=== PATIENT | female | born 1955 | race Caucasian/White ===

== ENCOUNTER → 2023-09-01 06:37 | Day surgery (SDC) | payer MEDICARE, OTHER, SELFPAY | LOC: GI 06:37 | PROVIDERS: ATTENDING PHYSICIAN Internal Medicine; FAMILY PHYSICIAN Nurse Practitioner Family | DX: Z12.11 Encounter for screening for malignant neoplasm of colon (principal); Z86.010 Personal history of colon polyps; K57.30 Diverticulosis of large intestine without perforation or abscess without bleeding | CPT/HCPCS: G0105 ==

== ENCOUNTER → 2023-11-08 06:16 | Day surgery (SDC) | payer MEDICARE, OTHER, SELFPAY | LOC: GI 06:16 | PROVIDERS: ATTENDING PHYSICIAN Internal Medicine; FAMILY PHYSICIAN Nurse Practitioner Family | DX: Z12.11 Encounter for screening for malignant neoplasm of colon (principal); Z86.010 Personal history of colon polyps; K57.30 Diverticulosis of large intestine without perforation or abscess without bleeding | CPT/HCPCS: G0105 ==

== ENCOUNTER → 2024-01-18 08:47 | Outpatient (REF) | payer MEDICARE, OTHER, SELFPAY | LOC: HWWDC 08:47 | PROVIDERS: ATTENDING PHYSICIAN Nurse Practitioner Family | DX: Z12.31 Encounter for screening mammogram for malignant neoplasm of breast (principal) | CPT/HCPCS: 77063; 77067 ==

== ENCOUNTER → 2024-03-16 10:12 | Outpatient (REF) | payer MEDICARE, OTHER, SELFPAY ==
[2024-03-16 12:37] LABS: % Basophils 1.1 % (0-2); % Eosinophils 3.1 % (0-6); % Immature Granulocytes 0.4 % (0-0.5); % Lymphocytes 30.2 % (20.5-51.1); % Monocytes 9.8 % (1.7-9.3); % Neutrophils 55.4 % (42.2-75.2); Absolute Basophils 0.1 10^3/uL (0-0.2); Absolute Eosinophils 0.2 10^3/uL (0-0.7); Absolute Lymphocytes 1.7 10^3/uL (1.2-3.4); Absolute Monocytes 0.5 10^3/uL (0.1-0.6); Absolute Neutrophils 3.1 10^3/uL (1.4-6.5); Hematocrit 40.8 % (37.0-47.0); Hemoglobin 13.5 g/dL (12.0-16.0); Mean Corp Hgb Conc. 33.1 g/dL (33.0-37.0); Mean Corpuscular Hgb 30.1 pg (27.0-31.0); Mean Corpuscular Volume 91.1 fL (81.0-99.0); Mean Platelet Volume 10.2 fL (7.4-10.4); Nucleated Red Blood Cells % 0 %; Platelet Count 263 10^3/uL (130-400); Red Blood Cell Count 4.48 10^6/uL (4.20-5.40); Red Cell Dist. Width 14.6 % (11.5-14.5); White Blood Cell Count 5.5 10^3/uL (4.8-10.8)
[2024-03-16 12:49] LABS: ALT (SGPT) 23 U/L (0-35); AST (SGOT) 28 U/L (14-36); Albumin 4.3 g/dl (3.5-5.0); Alkaline Phosphatase 108 U/L (38-126); Blood Urea Nitrogen 18 mg/dl (7-17); Calcium 10.2 mg/dl (8.4-10.2); Carbon Dioxide 32 mmol/L (22-30); Chloride 100 mmol/L (98-107); Glucose 89 mg/dl (70-99); HDL Cholesterol 77 mg/dl; LDL Cholesterol, Calculated 140 mg/dl; Potassium 4.3 mmol/L (3.5-5.1); Sodium 142 mmol/L (135-145); Total Bilirubin 0.4 mg/dl (0.2-1.3); Total Cholesterol 228 mg/dl (50-199); Triglyceride 59 mg/dl (10-149); Very Low Density Lipoprotein 11 mg/dl (0-30); eGFR 54.06
[2024-03-16 13:02] LABS: Microalbumin, Random Urine 1.1 mg/dl (0.6-1.7); Microalbumin/creatinine Ratio 9.3 mg/g
[2024-03-16 13:15] LABS: TSH Reflex To Free T4 2.18 uIU/ml (0.47-4.68)
== END ==
LOC: HWLAB 10:12
PROVIDERS: ATTENDING PHYSICIAN Nurse Practitioner Family
DX: Z00.00 Encounter for general adult medical examination without abnormal findings (principal); K59.09 Other constipation; F34.1 Dysthymic disorder; M19.90 Unspecified osteoarthritis, unspecified site; Z12.11 Encounter for screening for malignant neoplasm of colon; Z12.31 Encounter for screening mammogram for malignant neoplasm of breast; M81.0 Age-related osteoporosis without current pathological fracture; N18.31 Chronic kidney disease, stage 3a; E66.9 Obesity, unspecified; R41.3 Other amnesia; H91.90 Unspecified hearing loss, unspecified ear
CPT/HCPCS: 36415; 80053; 80061; 82043; 82570; 84443; 85025

== ENCOUNTER 2024-04-04 11:38 | Emergency (ER) | payer MEDICARE, OTHER, SELFPAY ==
[2024-04-04 11:41] VITALS: BP 147/86
[2024-04-04 12:49] VITALS: BP 144/76; BMI 29.5
[2024-04-04 13:00] VITALS: BP 151/76
--- NOTE | 2024-04-04 13:14 | ED.GENMED ---
History of Present Illness
General
Chief Complaint: Overdose Unintentional
Source: patient
Exam Limitations: none
Time Seen by Provider: 04/04/24 12:59
History of Present Illness
History of Present Illness:
68-year-old female presents stating that she may have incidentally taken an extra her dose of her 450 mg of Wellbutrin this morning. This happened around 8:00. While sitting at work she did develop palpitations. She came here for evaluation after
speaking with her doctor. At the current time she has no complaints of chest pain palpitations headache shortness of breath or cognitive fog. She denies any nausea or vomiting. She does not take any other medications other than a multivitamin
Past History
Past History
ED Past Medical History: None
Social History
Tobacco: Non-smoker
Phy Exam
Physical Exam
Physical Exam:
General: Well-appearing female no acute respiratory distress
HEENT: Normocephalic atraumatic
Heart: Regular rate and rhythm no murmurs
Lungs: Clear no wheeze
Extremities: No cyanosis or edema
Skin: Warm no rash
Course
Orders/Labs/Results
Orders:
Orders
04/04/24 11:46
Electrocardiogram (*1) Urgent
Reason for Study: QTc Monitoring
EKG- Treatment ONCE
Vital Signs
Initial and Last Documented VS:
Initial Vital Signs
Temp Pulse Resp BP Pulse Ox
98.2 F 93 18 147/86 98
04/04/24 11:41 04/04/24 11:41 04/04/24 11:41 04/04/24 11:41 04/04/24 11:41
Last Documented Vital Signs
Temp Pulse Resp BP Pulse Ox
98.5 F 90 20 139/82 99
04/04/24 12:49 04/04/24 14:39 04/04/24 14:39 04/04/24 14:39 04/04/24 14:39
MDM/Problems Addressed
Differential Diagnosis Includes:
Accidental ingestion of 450 mg of Wellbutrin that happened at 8 AM this morning. EKG shows sinus rhythm with normal intervals. She has normal rhythm on the monitor without any symptoms currently. Will contact poison control
*Critical Care Note
Total Time (30-74mins, 75-104mins- exclusive of procedures): Not Applicable
Update Note
Update Note:
Patient has remained stable throughout her stay. I did discuss with poison control. They recommended observation at least until midnight for potential risk of seizure. They relayed a 1% risk of seizure given his potential incidental overdose.
Discussed this with the patient explained the risks of seizure. She thought about it and called her friend. She wishes to go home. Her friend will watch her at home. She was aware of the risk of seizure. She is aware this could happen and the
medicine has not peaked yet and she understood this. Patient was written up for discharge
ED Attending Note
-
Portions of this chart may have been created with voice recognition software.� Occasional wrong word or��sound alike� substitutions may have occurred due to the inherent limitations of voice recognition software.
Discharge Plan
Departure
Patient Disposition: Home (Routine Discharge)
Date of Disposition: 04/04/24
Time of Disposition: 14:55
Patient with high blood pressure during this ER visit?: No
Discharge Problem:
Accidental overdose
Instructions: Accidental Overdose (DC)
Prescriptions:
No Action
hydrocodone-acetaminophen 1 TABLET tablet
1 tab PO Q4HPRN PRN (Reason: pain) Qty: 12 0RF
Referrals:
Spike Woodward CRNP [Family Provider] -
Activity Restrictions/Additional Instructions:
Please return here for worsening symptoms. As discussed there is a low chance of seizure with incidental overdose.
Interventions
Interventions:
*Risk Screen - Suicide Last Done: 04/04/24 11:41
*General Assessment Last Done: 04/04/24 11:41
*Neglect/Abuse Screening Last Done: 04/04/24 11:41
ED- Fall Risk Assessment Last Done: 04/04/24 12:49
*ED COVID-19 Vaccine History Last Done: 04/04/24 12:49
ED- Pulmonary Assessment Last Done: 04/04/24 12:49
ED-Psychological Assessment Last Done: 04/04/24 12:49
ED- Neurological Assessment Last Done: 04/04/24 12:49
ED- Cardiac Assessment Last Done: 04/04/24 12:49
Discharge Date and Time
Print Language: SWEDISH
[2024-04-04 14:00] VITALS: BP 139/82
[2024-04-04 14:39] VITALS: BP 139/82
[2024-04-04 15:00] VITALS: BP 143/77
--- NOTE | 2024-04-04 15:06 | EDRN ---
Alvaro KO at the pts bedside with this RN providing pt education and discharge instructions, there have been no s/s of seizure while in the ED
== END 2024-04-04 15:18 | disposition home or self-care (01) ==
LOC: EMR 11:38
PROVIDERS: EMERGENCY PHYSICIAN Student in an Organized Health Care Education/Training Program; FAMILY PHYSICIAN Nurse Practitioner Family
DX: T43.291A Poisoning by other antidepressants, accidental (unintentional), initial encounter (principal); R00.2 Palpitations; Y92.89 Other specified places as the place of occurrence of the external cause; Z88.1 Allergy status to other antibiotic agents
CPT/HCPCS: 99283; 93005

== ENCOUNTER → 2024-07-20 11:21 | Outpatient (REF) | payer MEDICARE, OTHER, SELFPAY | LOC: HWRAD 11:21 | PROVIDERS: ATTENDING PHYSICIAN Nurse Practitioner Family | DX: M81.0 Age-related osteoporosis without current pathological fracture (principal) | CPT/HCPCS: 77080 ==

== ENCOUNTER → 2024-11-09 14:59 | Outpatient (REF) | payer MEDICARE, OTHER, SELFPAY | LOC: HWRAD 14:59 | PROVIDERS: ATTENDING PHYSICIAN Nurse Practitioner Family | DX: M79.601 Pain in right arm (principal); M25.511 Pain in right shoulder | CPT/HCPCS: 72050; 73030 ==

== ENCOUNTER → 2025-03-12 08:23 | Outpatient (REF) | payer MEDICARE, OTHER, SELFPAY | LOC: MRI 08:23 | PROVIDERS: ATTENDING PHYSICIAN Nurse Practitioner Family | DX: M54.12 Radiculopathy, cervical region (principal) | CPT/HCPCS: 72141 ==

== ENCOUNTER → 2025-03-18 09:46 | Outpatient (REF) | payer MEDICARE, OTHER, SELFPAY ==
[2025-03-18 12:16] LABS: Hematocrit 40.0 % (37.0-47.0); Hemoglobin 13.4 g/dL (12.0-16.0); Mean Corp Hgb Conc. 33.5 g/dL (33.0-37.0); Mean Corpuscular Volume 92.8 fL (81.0-99.0); Nucleated Red Blood Cells % 0 %; Platelet Count 232 10^3/uL (130-400); Red Cell Dist. Width 14.5 % (11.5-14.5)
[2025-03-18 12:45] LABS: ALT (SGPT) 31 U/L (0-35); AST (SGOT) 30 U/L (14-36); Albumin 4.2 g/dl (3.5-5.0); Alkaline Phosphatase 93 U/L (38-126); Blood Urea Nitrogen 19 mg/dl (7-17); Calcium 9.6 mg/dl (8.4-10.2); Carbon Dioxide 32 mmol/L (22-30); Chloride 103 mmol/L (98-107); Glucose 86 mg/dl (70-99); HDL Cholesterol 70 mg/dl; LDL Cholesterol, Calculated 134 mg/dl; Potassium 4.2 mmol/L (3.5-5.1); Sodium 139 mmol/L (135-145); Total Protein 6.8 g/dl (6.3-8.2); Very Low Density Lipoprotein 15 mg/dl (0-30); eGFR > 60.00
[2025-03-18 12:58] LABS: Microalb - Urine Creatinine 62.000 mg/dl
[2025-03-18 13:04] LABS: Microalbumin, Random Urine 0.7 mg/dl (0.6-1.7)
== END ==
LOC: HWLAB 09:46
PROVIDERS: ATTENDING PHYSICIAN Nurse Practitioner Family
DX: Z00.00 Encounter for general adult medical examination without abnormal findings (principal); K59.09 Other constipation; F34.1 Dysthymic disorder; M19.90 Unspecified osteoarthritis, unspecified site; Z12.11 Encounter for screening for malignant neoplasm of colon; M81.0 Age-related osteoporosis without current pathological fracture; N18.31 Chronic kidney disease, stage 3a; E66.9 Obesity, unspecified; R41.3 Other amnesia; H91.90 Unspecified hearing loss, unspecified ear; Z23 Encounter for immunization
CPT/HCPCS: 36415; 80053; 80061; 82043; 82570; 84443; 85025

== ENCOUNTER → 2025-03-20 14:34 | Outpatient (REF) | payer MEDICARE, OTHER, SELFPAY | LOC: HWWDC 14:34 | PROVIDERS: ATTENDING PHYSICIAN Nurse Practitioner Family | DX: Z12.31 Encounter for screening mammogram for malignant neoplasm of breast (principal) | CPT/HCPCS: 77063; 77067 ==

== ENCOUNTER → 2025-05-25 13:29 | Outpatient (REF) | payer MEDICARE, OTHER, SELFPAY | LOC: PAVMRI 13:29 | PROVIDERS: ATTENDING PHYSICIAN Physical Medicine & Rehabilitation; FAMILY PHYSICIAN Nurse Practitioner Family | DX: M12.811 Other specific arthropathies, not elsewhere classified, right shoulder (principal) | CPT/HCPCS: 73221 ==

== ENCOUNTER → 2025-06-27 10:33 | Outpatient (REF) | payer MEDICARE, OTHER, SELFPAY ==
[2025-06-27 11:35] LABS: ALT (SGPT) 178 U/L (0-35); AST (SGOT) 120 U/L (14-36); Albumin 4.5 g/dl (3.5-5.0); Alkaline Phosphatase 102 U/L (38-126); HDL Cholesterol 86 mg/dl; LDL Cholesterol, Calculated 63 mg/dl; Total Protein 7.4 g/dl (6.3-8.2); Very Low Density Lipoprotein 9 mg/dl (0-30)
== END ==
LOC: REG 10:33
PROVIDERS: ATTENDING PHYSICIAN Nurse Practitioner Family
DX: E78.5 Hyperlipidemia, unspecified (principal)
CPT/HCPCS: 36415; 80061; 80076

== ENCOUNTER → 2025-07-05 11:23 | Outpatient (REF) | payer MEDICARE, OTHER, SELFPAY ==
[2025-07-05 15:28] LABS: ALT (SGPT) 93 U/L (0-35); AST (SGOT) 50 U/L (14-36); Albumin 4.2 g/dl (3.5-5.0); Alkaline Phosphatase 103 U/L (38-126); Total Protein 7.2 g/dl (6.3-8.2)
[2025-07-05 16:00] LABS: Hepatitis B Surface Antigen Negative (Negative)
[2025-07-05 16:17] LABS: Hepatitis C Antibody Negative (Negative)
== END ==
LOC: HWLAB 11:23
PROVIDERS: ATTENDING PHYSICIAN Nurse Practitioner Family
DX: R94.5 Abnormal results of liver function studies (principal)
CPT/HCPCS: 36415; 80076; 86709; 86803; 87340